=== PATIENT | female | born 1985 | race African-American/Black ===

== ENCOUNTER 2016-11-17 20:09 | Emergency (ER) | payer MEDICAID ==
[~2016-11-17 20:09] MED LIST: ALBU8I INH; ASPI81TA82 PO; AZIT250T74 PO; CEFU1TAB43 PO; DEPA500T PO; FLUO-1 PO; HALO1 INJ; PRED20 PO
[2016-11-17 20:14] VITALS: BP 122/76; PULSE 82; RESP 16; TEMP 100.2; O2SAT 100
== END 2016-11-17 21:23 | disposition left against medical advice (07) ==
LOC: NETRI 20:09
DX: R05 Cough (principal); Z53.21 Procedure and treatment not carried out due to patient leaving prior to being seen by health care provider; F17.210 Nicotine dependence, cigarettes, uncomplicated
CPT/HCPCS: 99281

== ENCOUNTER 2017-06-15 05:06 | Emergency (ER) | payer MEDICAID ==
[~2017-06-15] VITALS: Ht 160 cm; Wt 80.0 kg
[2017-06-15 05:13] VITALS: BP 115/71; PULSE 88; RESP 16; TEMP 98.4; O2SAT 100
[2017-06-15 07:05] LABS: BACTERIA, URINE RARE /hpf; BILIRUBIN, URINE NEG (NEG); BLOOD, URINE TRACE (NEG); GLUCOSE,URINE NEG (NEG); KETONE, URINE NEG (NEG); MUCUS URINE FEW /lpf (OCC); NITRITE,URINE NEG (NEG); SQUAMOUS EPITHELIAL CELL URINE 5 /hpf (0-5); URINE COLOR YELLOW (YELLW/STRAW); URINE LEUKOCYTE ESTERASE LARGE (NEG); WHITE BLOOD CELL CLUMPS RARE
--- NOTE | 2017-06-15 07:50 | PD ---
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 Patient has had symptoms for 2 weeks. Patient's last menstrual period was 2 months ago. Patient denies . Patient is sexually active and does not use contraceptive. Patient denies pain. Patient states discharge is very malodorous. Patient denies other medical problems or concerns other than has mental health issues and does take medication for this and has been compliant. PFSH Past Medical History Narrative Medical asthma depression; nursing notes reviewed Asthma: Yes Bipolar Disorder: Yes Depression: Yes Diminished Hearing: No Genitourinary: Yes (STD) Psychiatric: Yes (PSYCHOSIS) Immunizations Current: Yes Schizophrenia: Yes Seizures: Yes ?: Unknown : 3 Para: 1 Miscarriage: 1 : 1 Past Surgical History Section: Yes Social History Alcohol Use: Yes (OCC) Tobacco Use: No Substance Use: Yes (POT DAILY) Allergies-Medications (Allergen,Severity, Reaction): Coded Allergies: latex (Unverified Allergy, Severe, RASH, 06/15/17) Reported Meds & Prescriptions Reported Meds & Active Scripts Active Metrogel Vaginal Gel (Metronidazole Vaginal Gel) 0.75 % Gel 1 Appl VAGINAL HS 5 Days Doxycycline Hyclate 100 Mg Cap 100 Mg PO BID 7 Days Ventolin Hfa (Albuterol Sulfate) 8 Gm Aero 1 Puff INH Q4H PRN * SHAKE WELL BEFORE USE * Zithromax (Azithromycin) 250 Mg Tab 500 Mg PO DAILY 3 Days Ceftin 500 Mg Tab (Cefuroxime Axetil) 500 Mg Tab 500 Mg PO Q12HR 5 Days Deltasone 20 Mg Tab (Prednisone) 20 Mg Tab 20 Mg PO BID 3 Days Aspir-81 (Aspirin) 81 Mg Tab 81 Mg PO DAILY 30 Days Reported Depakote Delayed-Release (Divalproex Sodium) 500 Mg Tabec 500 Mg PO BID Prozac (Fluoxetine HCl) Unknown Strength Cap 20 Mg PO DAILY Haldol (Haloperidol) Unknown Strength Tab 50 Mg INJ MONTHLY Review of Systems Except as stated in HPI: all other systems reviewed are Neg Physical Exam Narrative GENERAL: Well developed well-nourished female no acute distress no respiratory SKIN: Warm and dry. HEAD: Normocephalic. EYES: No scleral icterus. No injection or drainage. NECK: Supple, trachea midline. No JVD or lymphadenopathy. CARDIOVASCULAR: Regular rate and rhythm without murmurs, gallops, or rubs. RESPIRATORY: Breath sounds equal bilaterally. No accessory muscle use. GASTROINTESTINAL: Abdomen soft, non-tender, nondistended. Pelvic exam: Normal external female exam without redness induration or ulcers; speculum exam purulent discharge; bimanual exam no adnexal mass or tenderness or uterine enlargement. MUSCULOSKELETAL: No cyanosis, or edema. BACK: Nontender without obvious deformity. No CVA tenderness. Data Data Last Documented VS Vital Signs Date Time Temp Pulse Resp B/P (MAP) Pulse Ox O2 Delivery O2 Flow Rate FiO2 06/15/17 05:13 98.4 88 16 115/71 (86) 100 Orders Orders Gc And Chlamydia Pcr (06/15/17 06:04) Wet Prep Profile (06/15/17 06:04) Urinalysis - C+S If Indicated (06/15/17 06:04) Ed Urine Pregnancytest Poc (06/15/17 06:04) Urine Culture (06/15/17 06:25) Ed Discharge Order (06/15/17 08:04) Ceftriaxone Inj (Rocephin Inj) (06/15/17 08:15) Lidocaine 1% Inj (50 Ml) (Xylocaine 1% I (06/15/17 08:15) Azithromycin (Zithromax) (06/15/17 08:15) Lidocaine Pf 1% Inj (Xylocaine-Mpf 1% In (06/15/17 08:37) Labs Laboratory Tests Test 06/15/17 06:25 Urine Color YELLOW Urine Turbidity HAZY Urine pH 6.0 Urine Specific [place] 1.020 Urine Protein TRACE mg/dL Urine Glucose (UA) NEG mg/dL Urine Ketones NEG mg/dL Urine Occult Blood TRACE Urine Nitrite NEG Urine Bilirubin NEG Urine Urobilinogen 4.0 MG/DL Urine Leukocyte Esterase LARGE Urine RBC 1 /hpf Urine WBC 11 /hpf Urine WBC Clumps RARE Urine Squamous Epithelial Cells 5 /hpf Urine Bacteria RARE /hpf Urine Mucus FEW /lpf Microscopic Urinalysis Comment CULTURE INDICATED Clue Cells (Wet Prep) NONE SEEN Vaginal Trichomonas (Wet Prep) PRESENT Vaginal Yeast (Wet Prep) NONE SEEN Chlamydia trachomatis DNA (PCR) NOT DETECTED Neisseria gonorrhoeae DNA (PCR) NOT DETECTED MDM Medical Decision Making Medical Screen Exam Complete: Yes Emergency Medical Condition: Yes Medical Record Reviewed: Yes Interpretation(s) [id number] hCG negative Urinalysis positive leukocyte esterase white blood cells, white blood cells wet prep: trichomonas Differential Diagnosis Sexually transmitted disease, UTI, Narrative Course Specimens collected and sent for resulting Patient presumptively administered Rocephin and azithromycin Patient stable for outpatient management will be given antibiotic coverage and encouraged to remain sexually inactive 1 week and have partner treated Diagnosis Primary Impression: Sexually transmitted disease (STD) Additional Impression: History of trichomonal vaginitis Med/Other Pt SpecificInfo: Prescription(s) given Scripts Metronidazole Vaginal Gel (Metrogel Vaginal Gel) 0.75 % Gel 1 APPL VAGINAL HS for Infection for 5 Days, #1 TUBE 0 Refills Prov: Mimi Cadet MD 06/15/17 Doxycycline Hyclate (Doxycycline Hyclate) 100 Mg Cap 100 MG PO BID for Infection for 7 Days, #14 CAP 0 Refills Prov: Mimi Cadet MD 06/15/17 Disposition: 01 DISCHARGE HOME Condition: Stable Mimi Cadet MD Jun 15, 2017 07:50
[2017-06-15] MEDS ORDERED: DOXY100C PO (08:07)
[2017-06-15] MEDS ORDERED: METR0.7528 VAGINAL (08:07)
[2017-06-15] MEDS ORDERED: LIDOCAINE HCL 1% 50 ML VIAL IM ONE (08:15)
[2017-06-15] MEDS ORDERED: AZITHROMYCIN 250 MG TAB PO ONE (08:15)
[2017-06-15] MEDS ORDERED: cefTRIAXone 250 MG VIAL IM ONE (08:15)
[2017-06-15] MEDS ORDERED: LIDOCAINE HCL 1% PF 30 ML VIAL ONE (08:37)
== END 2017-06-15 09:45 | disposition home or self-care (01) ==
LOC: NEPC 05:06
DX: A64 Unspecified sexually transmitted disease (principal); J45.909 Unspecified asthma, uncomplicated; F31.9 Bipolar disorder, unspecified; F20.9 Schizophrenia, unspecified; R56.9 Unspecified convulsions; Z79.82 Long term (current) use of aspirin; Z79.899 Other long term (current) drug therapy
CPT/HCPCS: 81001; 84703; 87086; 87210; 87491; 87591; 96372; 99284; J0696